=== PATIENT | male | born 1950 | race Caucasian/White ===

== ENCOUNTER 2016-12-03 09:55 | Day surgery (SDC) | payer BC, OTHER ==
[2016-12-03] MEDS ORDERED: MIDAZOLAM 2 MG/2 ML VIAL IVP ONE (09:57)
[2016-12-03] MEDS ORDERED: fentaNYL 100 MCG/2 ML INJ IVP ONE (09:57)
[2016-12-03] MEDS ORDERED: PROPOFOL 200 MG/20 ML VIAL IVP ONE (09:57)
[2016-12-03] MEDS ORDERED: NS 500 ML IV ONE (09:57)
[2016-12-03] MEDS ORDERED: BENZOCAINE UNIT DOSE SPRAY HURRICAINE MM ONE (09:57)
[2016-12-03] MEDS ORDERED: ETOMIDATE 20 MG/10 ML VIAL IVP ONE (09:57)
--- NOTE | 2016-12-03 10:12 | CPEKG ---
Heart Rate: 81 RR Interval: 741 QRSD Interval: 96 QT Interval: 408 QTC Interval: 474 QRS [place]: -39 T Wave [place]: 31 EKG Severity - ABNORMAL ECG - EKG Impression: ATRIAL FIBRILLATION, V-RATE 59-108 EKG Impression: LEFT AXIS DEVIATION Electronically Signed By: Antoni Howell 03-Dec-2016 14:08:42
[2016-12-03] MEDS ORDERED: PROPOFOL 200 MG/20 ML VIAL ONE ×2 (10:18)
[2016-12-03] MEDS ORDERED: ATROPINE SULFATE 1 MG/10 ML SYR ONE (10:23)
[2016-12-03 10:36] LABS: INR 1.85 (0.83-1.16); PROTIME(PATIENT) 21.4 SEC (12.0-15.0)
[2016-12-03 10:37] LABS: APTT 35.4 SEC (23.0-38.0)
[2016-12-03 10:53] LABS: ANION GAP 9 mEq/L (8-16); CALCIUM 9.1 mg/dL (8.5-10.4); CARBON DIOXIDE 28 mEq/l (22-31); CHLORIDE 105 mEq/L (97-110); CREATININE 0.9 mg/dL (0.7-1.3); GLOMERULAR FILTRATION RATE > 60; GLUCOSE 104 mg/dL (70-100); MAGNESIUM 1.9 mg/dL (1.6-2.3); POTASSIUM 4.3 mEq/L (3.5-5.2); SODIUM 142 mEq/L (134-144)
--- NOTE | 2016-12-03 11:05 | CPEKG ---
Heart Rate: 50 RR Interval: 1200 P-R Interval: 204 QRSD Interval: 100 QT Interval: 452 QTC Interval: 413 P [place]: 20 QRS [place]: -33 T Wave [place]: 13 EKG Severity - ABNORMAL ECG - EKG Impression: SINUS RHYTHM EKG Impression: LEFT AXIS DEVIATION Electronically Signed By: Antoni Howell 03-Dec-2016 14:07:52
[2016-12-03] MEDS ORDERED: APIXABAN 5 MG TAB PO ONE (11:15)
== END 2016-12-03 12:46 | disposition home or self-care (01) ==
LOC: FCATH 09:55
PROVIDERS: ATTEND Internal Medicine Cardiovascular Disease
PROC: 5A2204Z Restoration of Cardiac Rhythm, Single (ICD-10-PCS; principal; 2016-12-03)
PROC: B245ZZ4 Ultrasonography of Left Heart, Transesophageal (ICD-10-PCS; principal; 2016-12-03)
DX: I48.91 Unspecified atrial fibrillation (principal); I10 Essential (primary) hypertension
CPT/HCPCS: J0461; J2704

== ENCOUNTER 2016-12-18 11:26 | Day surgery (SDC) | payer BC, OTHER ==
[2016-12-18] MEDS ORDERED: LIDOCAINE 1% 300 MG/30 ML SDV IF ONE (12:00)
--- NOTE | 2016-12-24 07:57 | EPPROC ---
Electrophysiology Procedure Note: Procedure: LINQ implant Indication: Palpitation of unknown etiology Procedure: Parts were prepared and draped. LA given. Incision placed. Using usual technique, LINQ inserted. [place] placed after hemostasis.Dry sterile dressing applied. Pt left the CVC in stable condition. Conclusion: Successful LINQ implant Patient Problems: Problems Problem Status Onset Arthrodesis status Acute Cervical radiculitis Acute
== END 2016-12-18 13:32 | disposition home or self-care (01) ==
LOC: FCATH 11:26
PROVIDERS: ATTEND Internal Medicine Cardiovascular Disease
PROC: 0JH63PZ Insertion of Cardiac Rhythm Related Device into Chest Subcutaneous Tissue and Fascia, Percutaneous Approach (ICD-10-PCS; principal; 2016-12-18)
DX: I48.0 Paroxysmal atrial fibrillation (principal); I10 Essential (primary) hypertension
CPT/HCPCS: C1764

== ENCOUNTER 2017-05-27 11:32 | Day surgery (SDC) | payer BC, OTHER ==
[2017-05-27] MEDS ORDERED: LIDOCAINE 1% 300 MG/30 ML SDV ONE (11:37)
--- NOTE | 2017-05-27 12:14 | PDPROPOC ---
Sedation Plan of Care Sedation Plan of Care: vital signs stable, mental status noted, patient educated of risks, benefits, alternatives ASA Classification: ASA 3 Planned drugs: other Mallampati Score: Class 3 Mallampati Reference Image: Patient passed 3-3-2 rule?: Yes
--- NOTE | 2017-05-27 12:14 | PDHPUP ---
History & Physical Update H&P update statement: This history and physical update is based on an assessment of the patient which was completed after admission or registration (within 24 hours), but prior to the surgery/procedure. H&P update: H&P reviewed & patient examined, no change in patient's condition since H&P completed
--- NOTE | 2017-05-28 12:45 | EPPROC ---
Electrophysiology Procedure Note: Procedure: LINQ explant Indication: Pt had LINQ implant for eval of asymptomatic AF. Pt did not have any asymptomatic episdoes. He had developed laryngeal cancer and needs radiation therapy to the neck and chest and hence it was decided to explant LINQ. Procedure: Parts were prepared and draped. LA given. Incision placed. LINQ explanted. [place] removed. Dry sterile dressing placed. Conclusion: Successful LINQ explant Patient Problems: Problems Problem Status Onset Arthrodesis status Acute Cervical radiculitis Acute
== END 2017-05-27 13:00 | disposition home or self-care (01) ==
LOC: FCATH 11:32
PROVIDERS: ATTEND Internal Medicine Cardiovascular Disease
PROC: 0JH63PZ Insertion of Cardiac Rhythm Related Device into Chest Subcutaneous Tissue and Fascia, Percutaneous Approach (ICD-10-PCS; principal; 2017-05-27)
DX: I48.91 Unspecified atrial fibrillation (principal)

== ENCOUNTER 2017-08-20 11:33 | Emergency (ER) | payer BC, OTHER ==
[2017-08-20 11:52] VITALS: TEMP 98.4
--- NOTE | 2017-08-20 12:28 | EDPHY ---
H & P Stated Complaint: SENT FOR HYDRATION BY ONCOLOGY. Time Seen by Provider: 08/20/17 11:49 HPI/ROS: CHIEF COMPLAINT: Here for IV hydration HISTORY OF PRESENT ILLNESS: 67-year-old male history of throat cancer, diagnosed with thrush 4 days ago for which he is being treated, sent to the ER for IV hydration by [facility] as patient reports decreased oral intake secondary to thrush. Normal urine output. No lightheadedness. No chest pain no back pain no abdominal pain. No headache. REVIEW OF SYSTEMS: A ten point review of systems was performed and is negative with the exception of the items mentioned in the HPI PAST MEDICAL & SURGICAL HISTORY: Throat cancer. Recent thrash diagnosis. SOCIAL HISTORY: Nonsmoker PHYSICAL EXAM (Prior to examination, patient consented to physical exam, hands were washed and my usual and customary physical exam procedures followed) 1) GENERAL: Well-developed, well-nourished, alert and oriented. Appears to be in no acute distress. Working on his computer, appears comfortable. 2) HEAD: Normocephalic, atraumatic 3) HEENT: Pupils equal, round, reactive to light bilaterally. Sclera anicteric. Oropharynx: White intraoral plaques consistent with thrush. Dry mucous membranes No trismus no drooling. 4) NECK: Full range of motion, no meningeal signs. 5) LUNGS: Clear auscultation bilaterally, no wheezes, no rhonchi, no retractions. 6) HEART: Regular rate and rhythm, no murmur, no heave, no gallop. 7) ABDOMEN: No guarding, no rebound, no focal tenderness, negative McBurney's 8) MUSCULOSKELETAL: Moving all extremities, no focal areas of tenderness, no obvious trauma. No peripheral edema or discoloration. 9) BACK: No CVA tenderness, no midline vertebral tenderness, no fluctuance, no step-off, no obvious trauma, no visual or palpable abnormality. 10) SKIN: No rash, no petechiae. 11) Psychiatric: Patient is oriented X 3, there is no agitation. DIFFERENTIAL DIAGNOSIS: In no particular include but limited to pre renal azotemia, volume depletion, thrash - Personal History Current Tetanus/Diphtheria Vaccine: Yes Current Tetanus Diphtheria and Acellular Pertussis (TDAP): Yes - Medical/Surgical History Hx Asthma: No Hx Chronic Respiratory Disease: No Hx Diabetes: No Hx Cardiac Disease: No Hx Renal Disease: No Hx Cirrhosis: No Hx Alcoholism: No Hx HIV/AIDS: No Hx Splenectomy or Spleen Trauma: No Other PMH: THROAT CA WITH RADIATION AND CHEMO - Social History Smoking Status: Never smoked Constitutional: Initial Vital Signs Temperature (C) 36.9 C 08/20/17 11:43 Heart Rate 63 08/20/17 11:43 Respiratory Rate 15 08/20/17 11:43 Blood Pressure 146/86 H 08/20/17 11:43 O2 Sat (%) 97 08/20/17 11:43 O2 Delivery Mode Room Air Allergies/Adverse Reactions: clindamycin Allergy (Verified 09/10/14 10:26) Anaphylaxis Penicillins Allergy (Verified 09/10/14 10:26) Anaphylaxis Sulfa (Sulfonamide Antibiotics) Allergy (Verified 09/10/14 10:26) Rash Tetracyclines Allergy (Verified 09/10/14 10:26) Rash Home Medications: Medication Instructions Recorded ALPRAZolam [Xanax 1 MG (*)] 1 mg PO HS PRN 09/10/14 Losartan Potassium [Cozaar] 100 mg PO DAILY 09/10/14 HYDROcodone/APAP 10325 [[place] 1 - 2 tab PO Q6 PRN #60 tab 09/13/14 10/325 (*)] Amlodipine Besylate 12/03/16 Coumadin 2.5MG (*) 12/03/16 Medical Decision Making ED Course/Re-evaluation: Care of patient under supervision of primary supervising physician Dr Geronimo Esparza with whom I discussed case . 1:26 p.m.: Patient re-evaluated. Discussed his laboratory studies showing a BUN creatinine ratio of 24. He is comp receiving IV hydration. 2:17 p.m.: Re-evaluation, appears comfortable sitting upright working on his computer. He has been given IV hydration. He is tolerating oral intake. We discussed frequent small aliquots of fluid. He would like to be discharged. Feels comfortable being discharged. Usual and customary discharge precautions instructions provided. - Data Points Laboratory Results: Laboratory Results 08/20/17 12:40 08/20/17 12:40 08/20/17 08/20/17 12:40 12:40 WBC 1.48 10^3/uL L 10^3/uL (3.80-9.50) RBC 2.50 10^6/uL L 10^6/uL (4.40-6.38) Hgb 8.2 g/dL L g/dL (13.7-17.5) Hct 22.1 % L % (40.0-51.0) MCV 88.4 fL fL (81.5-99.8) MCH 32.8 pg pg (27.9-34.1) MCHC 37.1 g/dL H g/dL (32.4-36.7) RDW 18.8 % H % (11.5-15.2) Plt Count 134 10^3/uL L 10^3/uL (150-400) MPV 9.3 fL fL (8.7-11.7) Neut % (Auto) 66.2 % % (39.3-74.2) Lymph % (Auto) 21.6 % % (15.0-45.0) [place] % (Auto) 10.8 % % (4.5-13.0) Eos % (Auto) 0.7 % % (0.6-7.6) Baso % (Auto) 0.7 % % (0.3-1.7) Nucleat RBC Rel Count 0.0 % % (0.0-0.2) Absolute Neuts (auto) 0.98 10^3/uL L 10^3/uL (1.70-6.50) Absolute Lymphs (auto) 0.32 10^3/uL L 10^3/uL (1.00-3.00) Absolute Monos (auto) 0.16 10^3/uL L 10^3/uL (0.30-0.80) Absolute Eos (auto) 0.01 10^3/uL L 10^3/uL (0.03-0.40) Absolute Basos (auto) 0.01 10^3/uL L 10^3/uL (0.02-0.10) Absolute Nucleated RBC 0.00 10^3/uL 10^3/uL (0-0.01) Immature Gran % 0.0 % % (0.0-1.1) Immature Gran # 0.00 10^3/uL 10^3/uL (0.00-0.10) Sodium 142 mEq/L mEq/L (135-145) Potassium 4.0 mEq/L mEq/L (3.5-5.2) Chloride 101 mEq/L mEq/L (97-110) Carbon Dioxide 29 mEq/l mEq/l (22-31) Anion Gap 12 mEq/L mEq/L (8-16) BUN 27 mg/dL H mg/dL (7-23) Creatinine 1.1 mg/dL mg/dL (0.7-1.3) Estimated GFR > 60 Glucose 86 mg/dL mg/dL (70-100) Calcium 9.1 mg/dL mg/dL (8.5-10.4) Departure - Departure Disposition: Home, Routine, Self-Care Clinical Impression: Dehydration, Thrush, oral Condition: Good Instructions: Dehydration (ED), Oral Candidiasis (ED) Additional Instructions: Drink frequent, small amounts of fluid to stay hydrated. Return to the ER if you have a change in urine output, fevers, nausea or any other symptoms that concern you. Referrals: [facility] [Outside] - 2-3 days, call for appt.
[2017-08-20 12:46] LABS: PLATELET COUNT 134 10^3/uL (150-400)
[2017-08-20 14:36] VITALS: BP 132/74; PULSE 70; RESP 18; O2SAT 95
== END 2017-08-20 14:20 | disposition home or self-care (01) ==
DX: E86.0 Dehydration (principal); B37.0 Candidal stomatitis; Z85.818 Personal history of malignant neoplasm of other sites of lip, oral cavity, and pharynx

== ENCOUNTER 2017-08-29 09:17 | Emergency (ER) | payer BC, OTHER ==
[2017-08-29] MEDS ORDERED: HYDROmorphONE/DILAUDID 1 MG/ML INJ IVP ONE ×2 (09:44→14:04)
[2017-08-29 09:58] LABS: PLATELET COUNT 147 10^3/uL (150-400)
[2017-08-29] MEDS ORDERED: NS 1,000 ML IV ONE ×2 (10:00→14:42)
[2017-08-29] MEDS ORDERED: IOPAMIDOL (ISOVUE 370) 100 ML BTL IV ONE (11:24)
[2017-08-29] MEDS ORDERED: KETOROLAC 30 MG/1 ML SDV IVP ONE (13:02)
[2017-08-29 13:11] VITALS: RESP 16
[2017-08-29] MEDS ORDERED: ACETAMINOPHEN 500 MG TAB PO ONE (13:24)
--- NOTE | 2017-08-29 14:27 | EDPHY ---
H & P Stated Complaint: nontraumatic r sided back pain/shoulder to lumbar x 2 days - Personal History Current Tetanus/Diphtheria Vaccine: No - Medical/Surgical History Hx Asthma: No Hx Chronic Respiratory Disease: No Hx Diabetes: No Hx Cardiac Disease: No Hx Renal Disease: No Hx Cirrhosis: No Hx Alcoholism: No Hx HIV/AIDS: No Hx Splenectomy or Spleen Trauma: No Other PMH: THROAT CA WITH RADIATION AND CHEMO/laminectomy/cervical fusion - Social History Smoking Status: Never smoked Time Seen by Provider: 08/29/17 09:38 HPI/ROS: Chief complaint: Right-sided back pain History of present illness: This is a 67-year-old male who presents to the emergency department for right-sided back pain. Patient reports the onset of symptoms over the last day. He states the pain is around his right scapular region. He describes a sharp pain. He does state it is worse when taking a deep breath so he is trying to avoid doing this. The pain is radiating down the back. He wonders if it is musculoskeletal as it began after he is walking his dogs and they pulled him, causing him to twist. He denies other associated signs or symptoms including no chest pain, no cough, no shortness breath, no abdominal pain, no nausea, vomiting or diarrhea, no urinary symptoms, no fever. Review of systems: A 10 point review of systems was obtained and other than described above was negative (Cy Kohler) - Physical Exam Exam: General Appearance: Alert, appears uncomfortable. Eyes: Pupils equal and round no pallor or injection. ENT, Mouth: Mucous membranes moist. Respiratory: There are no retractions, lungs are clear to auscultation. Cardiovascular: Regular rate and rhythm. Gastrointestinal: Abdomen is soft and non tender, no masses, bowel sounds normal. Neurological: Alert and oriented x4. Strength and sensation intact and symmetrical. Skin: Warm and dry, no rashes. Musculoskeletal: The head is nontender. Neck is supple non tender. Spine is nontender to palpation along its entire length. Mild tenderness inferior to the right scapula the rest the back is unremarkable. Extremities are symmetrical , full range of motion. Psychiatric: Patient is oriented X 3, there is no agitation. (Cy Kohler) Constitutional: Initial Vital Signs Temperature (C) 36.4 C 08/29/17 09:21 Heart Rate 70 08/29/17 09:21 Respiratory Rate 17 08/29/17 09:21 Blood Pressure 133/66 H 08/29/17 09:21 O2 Sat (%) 98 08/29/17 09:21 O2 Delivery Mode Room Air Allergies/Adverse Reactions: clindamycin Allergy (Verified 08/29/17 09:18) Anaphylaxis Penicillins Allergy (Verified 08/29/17 09:18) Anaphylaxis Sulfa (Sulfonamide Antibiotics) Allergy (Verified 08/29/17 09:18) Rash Tetracyclines Allergy (Verified 08/29/17 09:18) Rash Home Medications: Medication Instructions Recorded ALPRAZolam [Xanax 1 MG (*)] 1 mg PO HS PRN 09/10/14 Losartan Potassium [Cozaar] 100 mg PO DAILY 09/10/14 HYDROcodone/APAP 10/325 [[place] 1 - 2 tab PO Q6 PRN #60 tab 09/13/14 10/325 (*)] Amlodipine Besylate 12/03/16 Diazepam [Valium 2 MG (*)] 2 mg PO TID #10 tab 08/29/17 Medical Decision Making - Diagnostics Imaging: Discussed imaging studies w/ pace analyst Radiologist ED Course/Re-evaluation: Patient seen in conjunction with my secondary supervising physician Dr. Coby Tena. Patient presents to the emergency department for right upper back pain. It originates around the scapula although it has moved around the back. He was evaluated as listed without significant findings noted to explain his symptoms. It has been difficult to control symptoms but ultimately he was given Valium with significant improvement in symptoms. We have discussed with him it is not clear as to the cause of his symptoms. We have offered him admission to the hospital for further evaluation and care. He has declined admission, he would like to be discharged home. As he has responded well to the Valium he will be sent home with a prescription for Valium. He is to follow up with his primary care doctor this week for recheck. Strict return precautions are given. Patient voiced understanding and agreement with plan. (Cy Kohler) I have evaluated and participated in the management of this patient. My co- signature indicates that I have reviewed this chart and that I agree with the findings and the plan of care as documented. My personal history and physical findings include: To see 7-year-old male with history of throat cancer for which he is undergoing chemotherapy. He presents with right upper back pain. The pain is located below and lateral to his scapula. At the time of my evaluation it seems to have moved somewhat and is extending lower down his back , maybe even radiating into the abdominal area. We discussed the possibility of this being a kidney stone, although the nature of the pain would not be typical. He has had a CT angiogram of the chest which is negative for PE--my 1st diagnostic impression. There is no evidence of pneumonia or other infection. He does not have a pneumothorax. His abdomen is soft and nontender. Lungs are clear. This pain began when he was walking his dog and it is certainly possible that it is musculoskeletal. He received IV Valium, Dilaudid, and Toradol with some pain relief. He did not achieve total pain relief though. We discussed further evaluations including CT abdomen/pelvis to assess for kidney stone but he chooses to forego any further testing at this point in time. He feels that he can control his pain at home with anti- inflammatory medication. Danger signs that should prompt him to be immediately re-evaluated were reviewed with him. (Coby Tena) Differential Diagnosis: Included but not limited to musculoskeletal cane, pulmonary infections, pneumothorax, pulmonary embolism, urinary tract disease, biliary tract disease, pancreatitis (Cy Kohler) - Data Points Laboratory Results: Laboratory Results 08/29/17 09:52 08/29/17 09:52 Medications Given: Discontinued Medications Acetaminophen (Tylenol) 1,000 mg PO EDNOW ONE Stop: 08/29/17 13:25 Last Admin: 08/29/17 13:25 Dose: 1,000 mg Diazepam (Valium) 2 mg IVP EDNOW ONE Stop: 08/29/17 14:29 Last Admin: 08/29/17 14:34 Dose: 2 mg Hydromorphone HCl (Dilaudid) 1 mg IVP EDNOW ONE Stop: 08/29/17 09:45 Last Admin: 08/29/17 09:53 Dose: 1 mg Hydromorphone HCl (Dilaudid) 0.5 mg IVP EDNOW ONE Stop: 08/29/17 14:05 Last Admin: 08/29/17 14:21 Dose: Not Given Sodium Chloride (Ns) 1,000 mls @ 0 mls/hr IV ONCE ONE PRN Reason: Wide Open Stop: 08/29/17 10:01 Last Admin: 08/29/17 10:03 Dose: 1,000 mls Sodium Chloride (Ns) 1,000 mls @ 0 mls/hr IV ONCE ONE PRN Reason: Wide Open Stop: 08/29/17 14:43 Last Admin: 08/29/17 14:43 Dose: 1,000 mls Ketorolac Tromethamine (Toradol) 15 mg IVP EDNOW ONE Stop: 08/29/17 13:03 Last Admin: 08/29/17 13:07 Dose: 15 mg Departure - Departure Disposition: Home, Routine, Self-Care Clinical Impression: Back pain Condition: Good Instructions: Back Pain (ED) Additional Instructions: Follow-up with your primary care doctor tomorrow for recheck without fail If symptoms worsen or new symptoms develop return to the emergency room for recheck Referrals: Daniel See MD [Primary Care Provider] - As per Instructions Prescriptions: Diazepam [Valium 2 MG (*)] 2 mg PO TID #10 tab
[2017-08-29] MEDS ORDERED: DIAZEPAM 10 MG/2 ML SYR IVP ONE (14:28)
[2017-08-29 16:13] VITALS: BP 136/58; PULSE 60; TEMP 98.2; O2SAT 96
== END 2017-08-29 16:13 | disposition home or self-care (01) ==
DX: M25.511 Pain in right shoulder (principal); Z85.819 Personal history of malignant neoplasm of unspecified site of lip, oral cavity, and pharynx
CPT/HCPCS: 96374; J1170; J1885; J3360; Q9967

== ENCOUNTER 2017-09-12 16:15 | Emergency (ER) | payer BC, OTHER ==
[2017-09-12] MEDS ORDERED: TDAP ADULT 0.5 ML INJ (BOOSTRIX) IM ONE (16:45)
--- NOTE | 2017-09-12 17:45 | EDPHY ---
General Time Seen by Provider: 09/12/17 16:43 Narrative: CHIEF COMPLAINT: Thumb laceration HISTORY OF PRESENT ILLNESS: Patient complains of accidental laceration to left thumb. This happened 1 hr prior to arrival. He was using a clean razor blade when he accidentally cut the left thumb. This on the radial side of the thumb. Moderate bleeding noted. He describes a dull, throbbing pain. No numbness or tingling. No weakness. No difficulty bending or straightening the thumb. He has right hand dominant. He has no other associated complaints or modifying factors. Tetanus is not up to date TIME OF INJURY: 1 hr prior to arrival TETANUS STATUS: Uncertain MEDICAL/SURGICAL/SOCIAL HISTORY: Multiple comorbidities. No anticoagulation use. 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 Brisk cap refill in the left thumb. Neurological: A&O, sensory symmetric, interossei strength symmetric. Skin: Grossly intact with exception of thumb laceration. There is a 4 cm curvilinear laceration left thumb on the ulnar side. Venous bleeding noted. No tendon injury. No foreign body. Neuro intact distally. Extremities: Tenderness of the left thumb of the laceration. No difficulty bending or straightening the thumb. No difficulty with abduction, adduction or opposition of the left thumb. DIFFERENTIAL DIAGNOSES: Including but not limited to laceration, complex laceration, laceration with tendon injury MDM: 5:00 p.m. Laceration to the left thumb over the ulnar side. Venous bleeding. No foreign body. No tendon injury. I have anesthetize the thumb. Proceed with irrigation and closure. Tetanus is currently being updated. 5:45 p.m. Complex laceration left thumb that has been repaired without difficulty. Excellent approximation of wound borders. Neurovascular intact postprocedure. He will be placed in a Xeroform and tube gauze dressing. We discussed wound care. We discuss 48-72 hr wound check. We discuss ED precautions and returning to the emergency department in 7-10 days for suture removal. He is comfortable with this plan and discharged home stable condition. PROCEDURE: Laceration repair Consent: Verbal Location: Left thumb, ulnar side Length of repair: 4 cm Complexity: Complex Layer involvement: Single Anesthesia: Digital block Irrigation: Extensive Debridement: None Procedure description: Following good anesthesia, the wound was copiously irrigated. Wound bed was explored with a sterile glove, and there is no foreign body noted. No tendon injury. Wound borders were approximated well with good hemostasis. Tolerated well without complication. Suture/Staple material: 5-0 Ethilon, 7 simple interrupted sutures Wound care: Routine as discussed Suture/Staple removal: 7-10 Days PROCEDURE: Digital Block Indication: Finger laceration Consent: Verbal Location: Left thumb Anesthesia: Lidocaine 1% plain, 0.25% Marcaine plain, 5mL Description: Base of the finger was prepped. The above was infused without difficulty. Tolerated well. Good anesthesia. Complications: None SUPERVISION: This patient was independently evaluated without direct involvement of or examination by the attending physician. ED Precautions: Worsening pain. Erythema, edema, cyanosis, pallor, paresthesia or anesthesia. - History Smoking Status: Never smoked - Objective Vital Signs: Initial Vital Signs Temperature (C) 98.4 F 09/12/17 16:35 Heart Rate 57 L 09/12/17 16:35 Respiratory Rate 18 09/12/17 16:35 Blood Pressure 161/78 H 09/12/17 16:35 O2 Sat (%) 94 09/12/17 16:35 O2 Delivery Mode Room Air Allergies/Adverse Reactions: clindamycin Allergy (Verified 09/12/17 16:33) Anaphylaxis Penicillins Allergy (Verified 09/12/17 16:33) Anaphylaxis Sulfa (Sulfonamide Antibiotics) Allergy (Verified 09/12/17 16:33) Rash Tetracyclines Allergy (Verified 09/12/17 16:33) Rash Home Medications: Medication Instructions Recorded ALPRAZolam [Xanax 1 MG (*)] 1 mg PO HS PRN 09/10/14 Losartan Potassium [Cozaar] 100 mg PO DAILY 09/10/14 HYDROcodone/APAP 10/325 [[place] 1 - 2 tab PO Q6 PRN #60 tab 09/13/14 10325 (*)] Amlodipine Besylate 12/03/16 Departure - Departure Disposition: Home, Routine, Self-Care Clinical Impression: Laceration of thumb Qualifiers: Encounter type: initial encounter Damage to nail status: without damage Foreign body presence: without foreign body Laterality: left Qualified Code(s): S61.012A - Laceration without foreign body of left thumb without damage to nail , initial encounter Condition: Good Instructions: Laceration (ED), Care For Your Stitches (DC) Additional Instructions: 1. Daily wound care as discussed 2. ED precautions as discussed 3. Follow up with this emergency department in 7-10 days for suture removal Referrals: Daniel See MD [Primary Care Provider] - As per Instructions Physician,Emergency DeptMD [Medical Doctor] - As per Instructions (7-10 days for suture removal)
[2017-09-12 18:10] VITALS: BP 194/81; PULSE 59; RESP 15; TEMP 98.8; O2SAT 99
== END 2017-09-12 18:10 | disposition home or self-care (01) ==
PROC: 0HQGXZZ Repair Left Hand Skin, External Approach (ICD-10-PCS; principal; 2017-09-12)
DX: S61.012A Laceration without foreign body of left thumb without damage to nail, initial encounter (principal); Z23 Encounter for immunization; W26.8XXA Contact with other sharp object(s), not elsewhere classified, initial encounter; Y99.8 Other external cause status; Y93.89 Activity, other specified

== ENCOUNTER 2017-10-09 10:01 | Emergency (ER) | payer BC, OTHER ==
[2017-10-09] MEDS ORDERED: ASPIRIN 81 MG CHEWABLE TAB PO ONE (10:25)
--- NOTE | 2017-10-09 10:27 | CPEKG ---
Heart Rate: 133 RR Interval: 451 QRSD Interval: 88 QT Interval: 336 QTC Interval: 500 QRS [place]: -36 T Wave [place]: 71 EKG Severity - ABNORMAL ECG - EKG Impression: ATRIAL FIBRILLATION, V-RATE 92-153 EKG Impression: LEFT AXIS DEVIATION EKG Impression: BORDERLINE PROLONGED QT INTERVAL Electronically Signed By: Jason Kirkland 09-Oct-2017 15:45:22
--- NOTE | 2017-10-09 10:42 | EDPHY ---
H & P Time Seen by Provider: 10/09/17 10:38 HPI/ROS: Chief complaint. Dizziness HPI. 67-year-old male with history of paroxysmal atrial fibrillation presents with dizziness and lightheadedness especially with standing and ambulating since yesterday. He has recently had 2 months of chemotherapy for throat cancer. He can't really feel himself go into atrial fibrillation but yesterday noticed that his pulse was irregular. He feels dizzy on standing and weak. Denies chest discomfort or shortness of breath. He started himself back on Eliquis yesterday. No fever or cough. No unusual leg pain or swelling. ROS Constitutional. Weakness Eyes. no problems with vision ENT. no sore throat, no nasal drainage Cardiovascular. Irregular heartbeat Respiratory. no shortness of breath, no cough Abdominal. no abdominal pain, no nausea/vomiting, no diarrhea . no problems urinating MS. no calf pain/swelling, no neck/back pain, no joint pain Skin. no rash Lymph. no swollen glands Neuro. Dizziness on standing Past Medical/Surgical History: Past medical history significant for throat cancer with radiation chemotherapy, cervical fusion, chronic pain, atrial fibrillation Social History: , nonsmoker, no alcohol Smoking Status: Never smoked Physical Exam: General Appearance: Alert well-developed male mild distress vital signs significant for heart rate 102 Eyes: Pupils equal and round no pallor or injection. ENT, Mouth: Mucous membranes are moist. Respiratory: There are no retractions, lungs are clear to auscultation. Cardiovascular: Irregularly irregular rate and rhythm Gastrointestinal: Abdomen is soft and nontender, no masses, bowel sounds normal. Neurological: Awake and alert, sensory and motor exams grossly normal. Skin: Warm and dry, no rashes. Musculoskeletal: Neck is supple nontender. Extremities symmetrical, full range of motion. Psychiatric: Patient is oriented X 3, there is no agitation. Constitutional: Initial Vital Signs Temperature (C) 36.3 C 10/09/17 10:06 Heart Rate 102 H 10/09/17 10:06 Respiratory Rate 20 10/09/17 10:06 Blood Pressure 147/91 H 10/09/17 10:06 O2 Sat (%) 98 10/09/17 10:06 O2 Delivery Mode Room Air Allergies/Adverse Reactions: clindamycin Allergy (Verified 10/09/17 10:04) Anaphylaxis Penicillins Allergy (Verified 10/09/17 10:04) Anaphylaxis Sulfa (Sulfonamide Antibiotics) Allergy (Verified 10/09/17 10:04) Rash Tetracyclines Allergy (Verified 10/09/17 10:04) Rash Home Medications: Medication Instructions Recorded ALPRAZolam [Xanax 1 MG (*)] 1 mg PO HS PRN 09/10/14 Losartan Potassium [Cozaar] 100 mg PO DAILY 09/10/14 HYDROcodone/APAP 10/325 [[place] 1 - 2 tab PO Q6 PRN #60 tab 09/13/14 10/325 (*)] Amlodipine Besylate 12/03/16 Diltiazem HCl [Diltiazem 24Hr Cd] 180 mg PO DAILY #7 cap.er.24h 10/09/17 Eliquis 10/09/17 Medical Decision Making - Diagnostics EKG Interpretation: EKG interpreted by me shows atrial fibrillation left axis deviation mild interventricular conduction delay. No significant ST elevation or depression. Ventricular response is 133 Procedures: IV normal saline, monitor At 11:08 a.m. Heart rate is 108-120. ED Course/Re-evaluation: Diltiazem drip was Ordered and discontinued. Re-evaluation 11:40 a.m. Patient is stable. he refuses admission. He tells me he will sign out AMA if admitted to the floor. We will try oral diltiazem for rate control. Re-evaluation again at 12:45 p.m.. Patient's heart rate is about 83-86. Still in atrial fibrillation. Patient and I discussed laboratory evaluation, recommendation for admission. He refuses admission. He is encouraged and welcome to return at any point for worsening symptoms I consulted and discussed case with , cardiology, who recommends diltiazem CD 180 mg. He recommends continuing the Eliquis. He recommends discontinuing the amlodipine while the patient is on the diltiazem. Differential Diagnosis: Atrial fibrillation with now controlled rate after diltiazem. Normal lab work. Patient refuses admission. He is encouraged to return. - Data Points Laboratory Results: Laboratory Results 10/09/17 10:46 10/09/17 10:46 10/09/17 10/09/17 10/09/17 11:09 10:46 10:46 WBC 4.57 10^3/uL 10^3/uL (3.80-9.50) RBC 4.04 10^6/uL L 10^6/uL (4.40-6.38) Hgb 12.6 g/dL L g/dL (13.7-17.5) Hct 36.7 % L % (40.0-51.0) MCV 90.8 fL fL (81.5-99.8) MCH 31.2 pg pg (27.9-34.1) MCHC 34.3 g/dL g/dL (32.4-36.7) RDW 13.2 % % (11.5-15.2) Plt Count 152 10^3/uL 10^3/uL (150-400) MPV 9.2 fL fL (8.7-11.7) Neut % (Auto) 64.3 % % (39.3-74.2) Lymph % (Auto) 23.4 % % (15.0-45.0) [place] % (Auto) 8.1 % % (4.5-13.0) Eos % (Auto) 3.3 % % (0.6-7.6) Baso % (Auto) 0.7 % % (0.3-1.7) Nucleat RBC Rel Count 0.0 % % (0.0-0.2) Absolute Neuts (auto) 2.94 10^3/uL 10^3/uL (1.70-6.50) Absolute Lymphs (auto) 1.07 10^3/uL 10^3/uL (1.00-3.00) Absolute Monos (auto) 0.37 10^3/uL 10^3/uL (0.30-0.80) Absolute Eos (auto) 0.15 10^3/uL 10^3/uL (0.03-0.40) Absolute Basos (auto) 0.03 10^3/uL 10^3/uL (0.02-0.10) Absolute Nucleated RBC 0.00 10^3/uL 10^3/uL (0-0.01) Immature Gran % 0.2 % % (0.0-1.1) Immature Gran # 0.01 10^3/uL 10^3/uL (0.00-0.10) PT 17.1 SEC H SEC (12.0-15.0) INR 1.38 H (0.83-1.16) APTT 33.8 SEC SEC (23.0-38.0) Sodium 142 mEq/L mEq/L (135-145) Potassium 4.3 mEq/L mEq/L (3.5-5.2) Chloride 103 mEq/L mEq/L (97-110) Carbon Dioxide 28 mEq/l mEq/l (22-31) Anion Gap 11 mEq/L mEq/L (8-16) BUN 25 mg/dL H mg/dL (7-23) Creatinine 1.1 mg/dL mg/dL (0.7-1.3) Estimated GFR > 60 Glucose 87 mg/dL mg/dL (70-100) Calcium 9.2 mg/dL mg/dL (8.5-10.4) Troponin I < 0.012 ng/mL ng/mL (0.000-0.034) Medications Given: Discontinued Medications Aspirin (Aspirin) 324 mg PO EDNOW ONE Stop: 10/09/17 10:26 Last Admin: 10/09/17 10:53 Dose: 324 mg Diltiazem HCl (Cardizem Immediate Release) 30 mg PO EDNOW ONE Stop: 10/09/17 11:43 Last Admin: 10/09/17 11:58 Dose: 30 mg Sodium Chloride (Ns) 1,000 mls @ 0 mls/hr IV ONCE ONE PRN Reason: Wide Open Stop: 10/09/17 10:51 Last Admin: 10/09/17 10:52 Dose: 1,000 mls Diltiazem HCl 125 mg/ Dextrose 125 mls @ 0 mls/hr IV EDNOW ONE; As Directed PRN Reason: Protocol Stop: 10/09/17 11:09 Last Admin: 10/09/17 12:03 Dose: Not Given Sodium Chloride (Ns) 1,000 mls @ 0 mls/hr IV ONCE ONE PRN Reason: Wide Open Stop: 10/09/17 11:51 Last Admin: 10/09/17 11:58 Dose: 1,000 mls Departure - Departure Disposition: Home, Routine, Self-Care Clinical Impression: Atrial fibrillation Qualifiers: Atrial fibrillation type: paroxysmal Qualified Code(s): I48.0 - Paroxysmal atrial fibrillation Condition: Fair Instructions: A-fib (Atrial Fibrillation) (ED) Additional Instructions: Continue Eliquis a blood thinner. Start diltiazem CD 100 80 mg taking 1 pill daily. While on the diltiazem CD discontinue the amlodipine. Return for chest discomfort, trouble breathing, worsening symptoms. Follow up with [facility] on Wednesday. Referrals: Daniel See MD [Primary Care Provider] - As per Instructions Yinka Bolanos MD [Medical Doctor] - As per Instructions Prescriptions: Diltiazem HCl [Diltiazem 24Hr Cd] 180 mg PO DAILY #7 cap.er.24h
[2017-10-09] MEDS ORDERED: NS 1,000 ML IV ONE ×2 (10:50→11:50)
[2017-10-09 10:59] LABS: PLATELET COUNT 152 10^3/uL (150-400)
[2017-10-09] MEDS ORDERED: DILTIAZEM 125 MG in D5W 125 ML IV ONE (11:08)
[2017-10-09 11:41] LABS: INR 1.38 (0.83-1.16); PROTIME(PATIENT) 17.1 SEC (12.0-15.0)
[2017-10-09] MEDS ORDERED: DILTIAZEM 30 MG TAB PO ONE (11:42)
[2017-10-09 12:00] VITALS: RESP 16
[2017-10-09 12:31] VITALS: O2SAT 98
[2017-10-09 14:03] VITALS: BP 123/74; PULSE 99; TEMP 98.1
== END 2017-10-09 14:02 | disposition home or self-care (01) ==
DX: I48.0 Paroxysmal atrial fibrillation (principal)

== ENCOUNTER 2017-11-11 08:06 | Day surgery (SDC) | payer BC, OTHER ==
[2017-11-11] MEDS ORDERED: MIDAZOLAM 2 MG/2 ML VIAL IVP ONE (08:11)
[2017-11-11] MEDS ORDERED: ATROPINE SULFATE 1 MG/10 ML SYR IVP ONE (08:11)
[2017-11-11] MEDS ORDERED: NS 500 ML IV ONE (08:11)
[2017-11-11] MEDS ORDERED: fentaNYL 100 MCG/2 ML INJ IVP ONE (08:11)
--- NOTE | 2017-11-11 08:27 | CPEKG ---
Heart Rate: 83 RR Interval: 723 QRSD Interval: 98 QT Interval: 420 QTC Interval: 494 QRS [place]: -27 T Wave [place]: 46 EKG Severity - ABNORMAL ECG - EKG Impression: ATRIAL FIBRILLATION-- Slower ventricular rate compared to October 09, 2017 EKG Impression: BORDERLINE LEFT AXIS DEVIATION EKG Impression: LOW VOLTAGE IN FRONTAL LEADS Electronically Signed By: Jason Juan 11-Nov-2017 11:04:27
[2017-11-11 09:09] LABS: INR 1.45 (0.83-1.16); PROTIME(PATIENT) 17.8 SEC (12.0-15.0)
[2017-11-11] MEDS ORDERED: PROPOFOL 200 MG/20 ML VIAL ONE (10:30)
--- NOTE | 2017-11-11 10:32 | PDANEPAE ---
ANE Past Medical History - Cardiovascular History Hx Hypertension: Yes Hx Arrhythmias: Yes Hx Chest Pain: No Hx Coronary Artery / Peripheral Vascular Disease: No Hx CHF / Valvular Disease: No Hx Palpitations: No Cardiovascular History Comment: afib. cardiomyopathy - Pulmonary History Hx COPD: No Hx Asthma/Reactive Airway Disease: No Hx Recent Upper Respiratory Infection: No Hx Oxygen in Use at Home: No Hx Sleep Apnea: No Pulmonary History Comment: cat triggers no dx - Neurologic History Hx Cerebrovascular Accident: No Hx Seizures: No Hx Dementia: No Neurologic History Comment: hx of laminectomy l4-5. numbness left hand currently - Endocrine History Hx Diabetes: No - Renal History Hx Renal Disorders: No Renal History Comment: hx of bph - Liver History Hx Hepatic Disorders: No - Neurological & Psychiatric Hx Hx Neurological and Psychiatric Disorders: No - Cancer History Hx Cancer: No - Congenital Disorder History Hx Congenital Disorders: No - GI History Hx Gastrointestinal Disorders: No - Other Health History Other Health History: open ulcer on left foot underneath where major metatarsal should be - Chronic Pain History Chronic Pain: Yes (left shoulder and neck pain, bilateral feet) - Surgical History Prior Surgeries: left shoulder surgery 09/2013. [facility] for afib 05/11/2012. l4-5 laminectomy. left knee scope. 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 left eye surgery ANE Review of Systems Review of Systems: ANE Patient History - Allergies Allergies/Adverse Reactions: clindamycin Allergy (Verified 10/09/17 10:04) Anaphylaxis Penicillins Allergy (Verified 10/09/17 10:04) Anaphylaxis Sulfa (Sulfonamide Antibiotics) Allergy (Verified 10/09/17 10:04) Rash Tetracyclines Allergy (Verified 10/09/17 10:04) Rash - Home Medications Home Medications: ALPRAZolam [Xanax 1 MG (*)] 1 mg PO HS PRN 09/10/14 [Last Taken 11/07/17 22:00] Eliquis 5 mg PO BID 10/09/17 [Last Taken 11/11/17 07:00] PERCOCET 2.5-325 MG TABLET 1 PO Q4 PRN 11/11/17 [Last Taken 11/10/17 14:00] - Anes Hx Anes Hx: no prior problems - Smoking Hx Smoking Status: Never smoked - Family Anes Hx Family Hx Anesthesia Complications: none ANE Labs/Vital Signs - Labs Result Diagrams: 11/11/17 08:35 - Vital Signs Height: 188 cm Weight: 75.3 kg ANE Physical Exam - Airway Mallampati Score: Class 2 Mouth exam: normal dental/mouth exam - Pulmonary Pulmonary: no respiratory distress, no rales or rhonchi, clear to auscultation - Cardiovascular Cardiovascular: irregularly irregular - ASA Status ASA Status: III ANE Anesthesia Plan Anesthesia Plan: GA with mask
[2017-11-11] MEDS ORDERED: ATROPINE SULFATE 1 MG/10 ML SYR ONE (10:39)
--- NOTE | 2017-11-11 10:42 | EPPROC ---
Electrophysiology Procedure Note: Procedure: CV Indication: Symptomatic Af Procedure: Pt sedated by anesthesia staff. Once sedated, pt was CV using 200J of synchronized DCCV. Pt successfully converted to SR Conclusion: Successful CV Patient Problems: Problems Problem Status Onset Arthrodesis status Acute Cervical radiculitis Acute
--- NOTE | 2017-11-11 10:50 | CPEKG ---
Heart Rate: 51 RR Interval: 1176 P-R Interval: 204 QRSD Interval: 100 QT Interval: 456 QTC Interval: 420 P [place]: 41 QRS [place]: -44 T Wave [place]: 23 EKG Severity - ABNORMAL ECG - EKG Impression: SINUS RHYTHM EKG Impression: LEFT ANTERIOR FASCICULAR BLOCK EKG Impression: Possible left atrial abnormality EKG Impression: Resolution of atrial fibrillation since November 11, 2017, 8:24 Electronically Signed By: Jason Juan 11-Nov-2017 11:03:44
[2017-11-11] MEDS ORDERED: PROMETHAZINE HCL 25 MG/ML INJ IVP PRN (10:53)
[2017-11-11] MEDS ORDERED: NALOXONE HCL 0.4 MG/ML INJ IVP PRN (10:53)
[2017-11-11] MEDS ORDERED: ONDANSETRON 4 MG/2 ML VIAL IVP PRN (10:53)
--- NOTE | 2017-11-11 10:54 | POSTANESTH ---
Post Anesthetic Evaluation Cardiovascular Status: Normal, Stable Respiratory Status: Normal, Stable, Similar to Pre-op Cond. Level of Consciousness/Mental Status: Can Participate in Eval, Mildly Sleepy, Arousable Pain Control: Adequate, Prn Tx Ordered Nausea/Vomiting Control: Adequate, Prn Tx Ordered Complications Possibly Related to Anesthesia: None Noted
== END 2017-11-11 11:50 | disposition home or self-care (01) ==
LOC: FCATH 08:06
PROVIDERS: ATTEND Internal Medicine Cardiovascular Disease
PROC: 5A2204Z Restoration of Cardiac Rhythm, Single (ICD-10-PCS; principal; 2017-11-11)
DX: I48.91 Unspecified atrial fibrillation (principal); I10 Essential (primary) hypertension; R00.2 Palpitations; Z79.899 Other long term (current) drug therapy
CPT/HCPCS: J0461; J2704

== ENCOUNTER 2018-10-23 22:58 | Emergency (ER) | payer BC, OTHER ==
--- NOTE | 2018-10-24 00:23 | EDPHY ---
General Time Seen by Provider: 10/23/18 23:12 Narrative: CLINICAL IMPRESSION: Dog bite, right hand punctures and laceration ASSESSMENT/PLAN: Patient is a 68-year-old male with a significant medical history of atrial fibrillation on Eliquis and hypertension who presents after sustaining a dog bite to his right hand. Patient is nontoxic-appearing, he is in no acute distress. Physical examination reveals a combination of abrasions and 2 separate lacerations to the dorsal aspect of the right hand. There was no evidence of large gaping wounds, deep structure involvement, bony involvement or neurovascular compromise. I discussed increased risk of closing these wounds and opted to leave wounds open to heal by secondary intention. The areas were copiously irrigated and cleansed, dressed with antibiotic ointment and a nonstick dressing. The patient's tetanus status was already up-to-date, patient with multiple allergies including penicillins and tetracyclines, proceeded with moxifloxacin and 1st dose given in the emergency department. The patient does not have a primary care provider in the area, I provided a referral for him to establish care with. I also told him if he is unable to be evaluated by PCP, return to the emergency department in 24-48 hours for a wound check. He will continue moxifloxacin for the next 7 days. On repeat examination and prior to discharge the patient is well appearing, no other injuries were identified and all questions and concerns have been answered. Strict return precautions were discussed-patient to return for any concerns for infection including increased redness, warmth, drainage, swelling, significant pain; he will return for any concerning symptom. The patient verbalizes understanding and he is in agreement with this plan. DIFFERENTIAL DX: Differential diagnosis including but not limited to and in no particular order puncture wound, laceration, compartment syndrome, vascular injury, foreign body, CHIEF COMPLAINT: Right hand dog bite HPI: Patient is a 68-year-old male with a history of atrial fibrillation on Eliquis and hypertension who presents to the emergency department after sustaining a dog bite by his own dog. Patient reports prior to arrival he reached down and startled his elderly dog, the dog subsequently bit him in the right hand. Patient is on Eliquis, he had some bleeding initially however applied compression and was able to get the bleeding under control. He is right-hand dominant, he is up-to-date on his tetanus status. He complains of several lacerations to the dorsal aspect of his right hand. He denies any limited mobility or bony tenderness. He denies any numbness or tingling of his hand or digits. He denies any other injury or complaint. PAST MEDICAL HISTORY: Atrial fibrillation on Eliquis, hypertension Pertinent Past Surgical History: Transmetatarsal amputation bilaterally Family History: Not contributory Social History: Denies ROS: A full 10 point review of systems was negative except for those mentioned in HPI. PHYSICAL EXAM: General Appearance: Alert, well-appearing, no acute distress. HENT: Normocephalic, atraumatic. External ears are normal appearing. Nares are clear, mucosa is pink. Oropharynx is clear. Eyes: PERRLA, EOMI. Conjunctiva pink, no pallor or injection. Neck: Supple, nontender, no midline pain, FROM. Respiratory: There are no retractions, lungs are clear to auscultation. Cardiac: Regular rate and rhythm, no murmurs or gallops. Gastrointestinal: Abdomen is soft, nontender, bowel sounds normal, no masses/ hernia, no rigidity, guarding or focal peritoneal findings. Skin: See below. Warm, dry, no rashes, no nodules on palpation. Upper Extremities: Left upper extremity is unremarkable. Intact distal pulses , Full range of motion intact, no tenderness, no ecchymosis or edema. Right hand with mild edema to the dorsal aspect, several abrasions however there is a 1 cm laceration noted on the dorsal aspect in the 1st webspace as well as a 1 cm laceration overlying the 4th metacarpal, both are actively oozing. Range of motion is full, patient has no bony tenderness. 2 point discrimination is intact distally at each digit. Right upper extremities otherwise unremarkable. Lower Extremities: Intact distal pulses, No edema, No tenderness, No cyanosis, full range of motion intact, No calf tenderness bilaterally. MEDICAL DECISION MAKING: Patient was seen independently. Secondary supervising physician at time of evaluation was Dr. Arriaga, he did not evaluate this patient. Diagnosis: Dog bite, right hand abrasion and laceration. New, requires workup Summary: See Assessment and Plan for summary of ED visit Clinical lab tests: Not applicable. Independent visualization of images, tracing, or specimens: Not applicable. Decision to obtain medical records or history from someone other than the patient: No Review / Summarize previous medical records: Yes Discussed patient with another provider: Yes, Dr. Arriaga Patient Progress: Stable, discharged. - History Smoking Status: Never smoked - Objective Vital Signs: Initial Vital Signs Temperature (C) 36.8 C 10/23/18 23:02 Heart Rate 88 10/23/18 23:02 Respiratory Rate 18 10/23/18 23:02 Blood Pressure 146/94 H 10/23/18 23:02 O2 Sat (%) 95 10/23/18 23:02 O2 Delivery Mode Room Air Allergies/Adverse Reactions: clindamycin Allergy (Verified 10/23/18 23:00) Anaphylaxis Penicillins Allergy (Verified 10/23/18 23:00) Anaphylaxis Sulfa (Sulfonamide Antibiotics) Allergy (Verified 10/23/18 23:00) Rash Tetracyclines Allergy (Verified 10/23/18 23:00) Rash Home Medications: Medication Instructions Recorded ALPRAZolam [Xanax 1 MG (*)] 1 mg PO HS PRN 09/10/14 Eliquis 5 mg PO BID 10/09/17 Amlodipine Besylate 11/11/17 Moxifloxacin [Avelox 400 mg (*)] 400 mg PO DAILY 7 Days tab 10/24/18 Medications Given: Discontinued Medications Moxifloxacin HCl (Avelox) 400 mg PO EDNOW ONE PRN Reason: Protocol Stop: 10/24/18 00:46 Last Admin: 10/24/18 00:40 Dose: 400 mg Departure - Departure Disposition: Home, Routine, Self-Care Clinical Impression: Dog bite of hand Qualifiers: Encounter type: initial encounter Laterality: right Qualified Code(s): S61.451A - Open bite of right hand, initial encounter Puncture wound, hand Qualifiers: Encounter type: initial encounter Foreign body presence: without foreign body Laterality: right Qualified Code(s): S61.431A - Puncture wound without foreign body of right hand, initial encounter Condition: Good Instructions: Animal Bite (ED), Puncture Wound (ED) Additional Instructions: DISCHARGE INSTRUCTIONS FROM YOUR DOCTOR Thank you for visiting our emergency department today. Please keep in mind that discharge from the emergency department does not mean that there is nothing wrong - it simply means that we have not identified an emergency condition that requires further evaluation or treatment in the hospital. Rest, push fluids, healthy diet, all to help support your immune system fight off infection. Clean your wounds clean and dressed. Clean at least four times daily or when soiled with gentle soap and water, apply a dressing and wear the splint for relative immobilization and protection. Elevate the affected hand as much as possible. Moxifloxacin antibiotic as prescribed. Next dose in 12 hours. Take with food. Consider over the counter probiotics to help prevent antibiotic associated diarrhea. For pain control: You may take Tylenol, I recommend 500-1000 mg every 6-8 hours as needed. Take with food and a full glass of water. Stop taking if this is upsetting her stomach. Do not exceed 3000 mg in a 24 hr period. Follow-up in the next 1-2 days for a wound check, sooner for any concerns. As discussed, dog bite wounds are at high risk of infection which is why they are not sutured closed. Also, as discussed, there can be an underlying tendon injury. If at any time in the future, the finger will not bend or straighten normally, consultation with a hand specialist should be sought urgently. Return for increased or unmanageable pain, decreased range of motion of your fingers or hand, coolness or discoloration of the fingers or hand, development of redness, swelling, warmth, drainage, heavy bleeding, red streaking, fever, chills, nausea, vomiting, dizziness, weakness, bloody diarrhea, rash, difficulty breathing or swallowing, or for any other new, worsening, or worrisome symptoms. People present with illnesses and injuries in different ways, and it is always possible that we have missed something. You may always return for re-evaluation if symptoms worsen or if they are not improving or if you develop new/different symptoms. Again, thank you for choosing our emergency department. We hope that you feel better. Referrals: Sheri Miranda MD [Medical Doctor] - 1 day without fail (It is very important to establish care with a primary care provider.) ED,PHYSICIAN REINA [Medical Doctor] - 1-2 days without fail (If you do not establish care with a primary care provider, please return to the emergency department for a wound check.) Prescriptions: Moxifloxacin [Avelox 400 mg (*)] 400 mg PO DAILY 7 Days tab
[2018-10-24] MEDS ORDERED: MOXIFLOXACIN 400 MG TAB PO ONE (00:45)
[2018-10-24 00:58] VITALS: BP 135/83
--- NOTE | 2018-10-25 17:32 | ASMTCMCOM ---
CM Note CM Note Notes: Around 1250 pt presented to the ED registration desk and requested assistance with getting a followup appt from his ED visit on 10/23/18 (d/c'd 10/24/18) for a dog bite to his right hand. Pt had been instructed to followup with the on-call PCP Dr Sheri Miranda at [facility] in [place] within 1-2 days, without fail. Pt states he called their office this morning and they told him that Dr iMranda coudn't see him until November. This CM confirmed that Dr Sheri Miranda was the general outpatient provider on-call during pt's ED visit on 10/23/18 (triaged at 23:00 but discharged 10/24/18 00:57). CM called Dr Miranda's office and spoke with bookkeeper receptionist re:pt needing to be seen today. The receptionist clerk said Dr Miranda is not in the office today and no other providers have any openings but an [employer]PER[employer] could see the pt tomorrow morning. The receptionist clerk noted that the pt is in their system and the pt used to be followed by Dr See. This CM went to ask the pt if he would like CM to call and see if they could get the pt scheduled w/Dr See today. The pt responded "He's gone, he's not there anymore. And their office is such a mess, I don't want anything to do with them." This CM explained the situation w/Dr Miranda and presented the pt two options: the pt could check back into the ED to have his wounds rechecked here (which the initial discharge instructions said to do if he could not get in with Dr Miranda within 1-2days) or this CM could continue to call around to [facility] outpatient care clinics and try to get the pt seen this afternoon. Pt stated "Well I'll just get seen here then rosibel I just need a recheck. I'm not interested in setting up another primary care doctor right now, I'd like to do some research first." CM expressed understanding and ensured pt was aware that if he checked into the ED it would be another complete ED visit charge. Pt became agitated and immediately packed up his things and as he was walking out of the ED entrance said "Forget it then. This is the most messed up medical system I've ever been to. Funny thing is, I work for a [employer]. Unfortunately it is in a different state. I can't believe this. I'm doing everything I was instructed to do but I can't get any treatment." This CM attempted to reaffirm that yes, he is doing everything he was instructed to do, apologize for Dr Miranda not being in the office today, and remind him that this CM can continue to call around to other clinics or the pt can receive treatment in the ED. However, the pt continued to walk out of the ED entrance and said "I'll just go somewhere else." CM available for further assistance if needed. Date Signed: 10/25/2018 05:32 PM Electronically Signed By:Alexsandra Ramos RN
== END 2018-10-24 00:57 | disposition home or self-care (01) ==
DX: S61.431A Puncture wound without foreign body of right hand, initial encounter (principal); I48.91 Unspecified atrial fibrillation; W54.0XXA Bitten by dog, initial encounter; Y93.89 Activity, other specified; Y99.9 Unspecified external cause status; Z79.01 Long term (current) use of anticoagulants